=== PATIENT | female | born 1960 | race Caucasian/White ===

== ENCOUNTER 2018-06-07 12:24 | Day surgery (SDC) | payer MEDICARE, MEDICAID ==
[~2018-06-07] VITALS: Ht 152.4 cm; Wt 59.1 kg
[2018-06-07 12:35] VITALS: BP 151/116
[2018-06-07] MEDS ORDERED: LEVE750T6 PO (12:41)
[2018-06-07] MEDS ORDERED: HYDR-565 PO (12:42)
[2018-06-07] MEDS ORDERED: CARI350T PO (12:42)
[2018-06-07] MEDS ORDERED: SERT100T PO (12:43)
[2018-06-07] MEDS ORDERED: CLON-527 PO (12:43)
[2018-06-07] MEDS ORDERED: ZOLP10TA5 PO (12:44)
[2018-06-07] MEDS ORDERED: FAMO40TA73 PO (12:44)
[2018-06-07] MEDS ORDERED: EST1T PO (12:44)
[2018-06-07] MEDS ORDERED: MELO15TA13 PO (12:45)
[2018-06-07] MEDS ORDERED: METH2.5T PO (12:46)
[2018-06-07] MEDS ORDERED: MIDAZolam 5mg/5ml vial ONE (12:49)
[2018-06-07] MEDS ORDERED: fentaNYL/PF 50MCG/1 ML 2ML syringe ONE (12:49)
[2018-06-07] MEDS ORDERED: diphenhydrAMINE 50 mg/ml inj ONE (13:12)
[2018-06-07 15:19] VITALS: BP 145/74
[2018-06-07 15:29] VITALS: BP 151/74
[2018-06-07 15:39] VITALS: BP 153/66
[2018-06-07 15:45] VITALS: BP 155/87
== END 2018-06-07 15:50 | disposition home or self-care (01) ==
LOC: GI LAB 12:24
PROVIDERS: ATTEND Internal Medicine Gastroenterology
DX: K63.89 Other specified diseases of intestine (principal); I10 Essential (primary) hypertension; F17.210 Nicotine dependence, cigarettes, uncomplicated; K21.9 Gastro-esophageal reflux disease without esophagitis; D89.89 Other specified disorders involving the immune mechanism, not elsewhere classified; Z79.891 Long term (current) use of opiate analgesic; Z88.0 Allergy status to penicillin; Z90.710 Acquired absence of both cervix and uterus; Z91.048 Other nonmedicinal substance allergy status; Z79.899 Other long term (current) drug therapy; Z98.890 Other specified postprocedural states
CPT/HCPCS: 45331; G0500; J1200; J2250; J3010; J7030; 88305; A4620